=== PATIENT | male | born 1950 | race Caucasian/White ===

== ENCOUNTER 2018-01-01 12:35 | Emergency (ER) | payer OTHER ==
[~2018-01-01] VITALS: Ht 182.9 cm; Wt 93.0 kg
--- NOTE | ~2018-01-01 | EKG ---
[place] [address] [address] [place] [address] ELECTROCARDIOGRAM REPORT Name: SUDHA ANDRADE Room #: DEP MADDISON Contreras#: [id number] Admission: 01/01/18 Attend Phys: Discharge: 01/01/18 Date of : 54 Report #: [id number] THIS REPORT FOR: //name// [facility]ly [facility] ED Test Date: 2018-01-01 Test Time: 13:00:35 Pat Name: SUDHA ANDRADE Department: Room: Gender: M Finance Manager: HELENSAMARA : 1950 Requested By: Anthony Dhillon Order Number: [id number] MD: Clive Jett Measurements Intervals [place] Rate: 105 P: 71 MA: 164 QRS: 64 QRSD: 73 T: 11 QT: 305 QTc: 404 Interpretive Statements Sinus tachycardia Otherwise no significant abnormality No previous ECG available for comparison Electronically Signed On 01-01-2018 16:43:52 CDT by Clive Jett [email or web address] <ELECTRONICALLY SIGNED> By: Clive Jett MD, [facility] 01/01/18 1643 1300 1300 Clive Jett MD, FACC /EPI
[2018-01-01 12:57] LABS: ABSOLUTE NEUTROPHILS 4.3 thou/uL (1.4-8.2); BASOPHILS 0.8 % (0.0-2.0); EOSINOPHILS 2.5 % (0.0-3.0); HEMATOCRIT 36.6 % (42.0-52.0); HEMOGLOBIN 12.8 gm/dL (14.0-18.0); LYMPHOCYTES 26.1 % (24.0-44.0); MCH 31.8 pg (26.0-34.0); MCHC 34.9 g/dL (28.0-37.0); MCV 91.2 fL (80.0-100.0); MONOCYTES 7.4 % (1.0-8.0); PLATELET COUNT 175 thou/uL (150-400); POLYS 63.2 % (36.0-66.0); RBC 4.01 mil/uL (4.50-6.00); RDW 13.3 % (10.5-14.5); WBC 6.9 thou/uL (4.0-11.0)
[2018-01-01 14:05] VITALS: BP 123/77
== END 2018-01-01 14:07 | disposition left against medical advice (07) ==
LOC: ER 12:35
PROVIDERS: Emergency Medicine
DX: R41.0 Disorientation, unspecified (principal); R00.0 Tachycardia, unspecified